=== PATIENT | male | born 1935 | race Caucasian/White ===

== ENCOUNTER 2016-08-14 23:18 | Observation (INO) | payer MEDICARE ==
--- NOTE | ~2016-08-14 | HP ---
History And Physical [id number] [place]. [address] NAME: HUMA ORTEGA : 31 STATUS : ADM Marc PAT#: [id number] AGE: 81 ADM/REG DATE : 08/14/16 MR#: [id number] REPORT SERV DATE: 08/15/16 DICTATED BY: MACARIO CARUSO JR. DATE: 08/15/16 REPORT STATUS : Draft TRANSCRIBED BY: MODIsha DATE: 08/15/16 DATE OF ADMISSION: 08/14/2016 CHIEF COMPLAINT: Near-syncope Lowe's, chest pain, weakness. HISTORY OF PRESENT ILLNESS: This 81-year-old white male, apparently had a weak spell with some chest pain, near-syncope at [facility] and was seen by a mule spinner, who arranged for an [employer] helicopter to take him from [facility] to [place] where he had a normal troponin. He also had a normal troponin on arrival here. He and his family apparently reportedly begged the ship pilot dispatcher to transport him to [facility], but apparently there is a financial agreement between [facility] and [place] now and that request was refused. Currently, he is chest pain free, but does have occasional left and right chest discomforts and history of bare-metal stenting in the distant past involving LAD and diagonal vessels with no recent MPI. He also has paroxysmal atrial fibrillation and history of ventricular tachycardia and has an ICD in place. Dr. Porter attempted to place the left ventricular lead, but was unsuccessful due to scar tissue, etc. He does not have a CAGE OPERATOR device now. He has valvular heart disease and is status post to Dr. Shane in 2001, aortic valve homograft with a soft aortic insufficiency murmur audible today. At that time, he also had a bioprosthetic mitral valve replacement and tricuspid valve annuloplasty. There is no history of CABG despite what some office records say. SOCIAL HISTORY: No tobacco, alcohol, or illicit drugs. Supportive family. FAMILY HISTORY: Noncontributory. ALLERGIES: HE HAS A HYPOTENSIVE REACTION TO NITROGLYCERIN SUBLINGUAL. HE ALSO IS INTOLERANT TO PREDNISONE. MEDICATIONS: Home medication list is reviewed. PHYSICAL EXAMINATION: VITAL SIGNS: Blood pressure 118/59, pulse is 69 and regular, respirations 18, afebrile. HEENT: No xanthelasma. NECK: No JVD at 30 degrees, no thyromegaly, no carotid bruit. LUNGS: Clear to auscultation and percussion. COR: Faint diastolic murmur at base. No third sound. ABD: Soft, nontender, no hepatosplenomegaly, no mass. EXT: Without edema or pulse deficit. MS: Back without spine or costovertebral angle tenderness. NEURO: Symmetric findings. DISCUSSION: Weak near-syncopal episodes. Chest pain with history of bare-metal stenting in History And Physical [address] [address] NAME: HUMA ORTEGA : 31 STATUS : ADM Marc PAT#: [id number] AGE: 81 ADM/REG DATE : 08/14/16 MR#: [id number] REPORT SERV DATE: 08/15/16 DICTATED BY: MACARIO CARUSO JR. DATE: 08/15/16 REPORT STATUS : Draft TRANSCRIBED BY: MODL DATE: 08/15/16 LAD and diagonal vessels in the distant past. Valvular heart disease, status post aortic valve homograft with faint diastolic decrescendo murmur audible today. Bioprosthetic mitral valve replacement and tricuspid valve annuloplasty also performed in 2001. ICD with no left ventricular lead possible. History of ventricular tachycardia, paroxysmal atrial fibrillation, chronic Coumadin anticoagulation. PLAN: MPI today along with echocardiogram and [facility] ICD interrogation. Medication list reviewed and modified temporarily. ANA/KATELYN Macario Caruso Jr., M.D. / [id number] CC: Macario Caruso Jr., M.D.
[~2016-08-14 23:18] MED LIST: ASAB PO; C1 PO; COREG3 PO; FERROUS SULF325 M1 PO; IMDUR30 PO; KLOR-CON M2020 MEQ PO; L40 PO; LEVOTHYROXIN50 MCG PO; LIPITOR20 PO; MULTIVITAMI1 PO; NITROSTAT0.4 MG SL; TRANXENE 7.5 M7.5 MG PO; ULTRAM50 PO; VITAMIN B-121000 MC1 SL; VITAMIN D1000 UNI1 PO
[2016-08-15] MEDS ORDERED: FERROUS SULF325 M1 PO (00:41)
[2016-08-15] MEDS ORDERED: MULTIVIT/MIN PO (00:42)
[2016-08-15] MEDS ORDERED: CYANO1000T PO (00:43)
[2016-08-15] MEDS ORDERED: SYN.05 PO (00:44)
[2016-08-15] MEDS ORDERED: ASAB PO (00:44)
[2016-08-15] MEDS ORDERED: VITAMIN D31000 UNIT PO (00:44)
[2016-08-15] MEDS ORDERED: POTASSIUM GLUCONATE PO (00:47)
[2016-08-15] MEDS ORDERED: L40 PO (00:50)
[2016-08-15] MEDS ORDERED: COREG3 PO (00:50)
[2016-08-15] MEDS ORDERED: IMDUR30 PO (00:51)
[2016-08-15] MEDS ORDERED: NITROSTAT0.4 MG SL (00:51)
[2016-08-15] MEDS ORDERED: C1 PO (00:55)
[2016-08-15 01:12] LABS: BASOPHILS 0.5 %; BASOPHILS ABSOLUTE 0.02 10/3/uL (0.0-0.16); EOSINOPHILS 3.1 %; EOSINOPHILS ABSOLUTE 0.12 10/3/uL (0.0-0.53); HEMATOCRIT 32.7 % (40.0-51.0); HEMOGLOBIN 11.1 g/dL (13.6-17.8); IMMATURE GRANULOCYTES 0.3 %; IMMATURE GRANULOCYTES ABSOLUTE 0.01 10/3/uL (0.0-0.11); LYMPHOCYTES 26.3 %; LYMPHOCYTES ABSOLUTE 1.02 10/3/uL (0.67-4.30); MEAN CORPUS HGB CONC 33.9 g/dL (32.0-36.0); MEAN CORPUSCULAR HEMOGLOB 33.5 pg (26.0-34.0); MEAN CORPUSCULAR VOLUME 98.8 fL (80-100); MONOCYTES 10.1 %; MONOCYTES ABSOLUTE 0.39 10/3/uL (0.21-1.20); NEUTROPHILS 59.7 %; NEUTROPHILS ABSOLUTE 2.32 10/3/uL (2.02-8.40); RBC DISTRIBUTION WIDTH 14.9 % (12.0-16.0); RED CELL COUNT 3.31 10/6/uL (4.7-6.1); WHITE BLOOD CELLS 3.9 10/3/uL (4.5-10.5)
[2016-08-15 01:14] LABS: MANUAL DIFF NO %; PLATELET COUNT 117 10/3/uL (150-400)
[2016-08-15 01:29] LABS: BUN (BLOOD UREA NITROGEN) 24 MG/DL (6-23); CALCIUM, SERUM 8.9 MG/DL (8.5-10.4); CHLORIDE, SERUM 104 MMOL/L (96-112); CHOL/HDL RATIO(NOT ORDER) 5.3 (0-5); CHOLESTEROL 169 MG/DL (< 200); CO2 (CARBON DIOXIDE) 33 MMOL/L (24-34); CREATININE 1.69 MG/DL (0.70-1.30); GFR AFRICAN AMERICAN 43 ML/MIN (>=60); GFR NON AFRICAN AMERICAN 37 ML/MIN (>=60); GLUCOSE, SERUM 93 MG/DL (60-99); HDL CHOLESTEROL 32 MG/DL (> 39); LDL CHOLESTEROL 110 MG/DL (< 130); NON-HDL CHOLESTEROL 137 MG/DL (< 160); POTASSIUM, SERUM 3.9 MMOL/L (3.5-5.3); SGPT(ALT) 22 U/L (5-65); SODIUM, SERUM 141 MMOL/L (135-148); TRIGLYCERIDE 137 MG/DL (< 150); TROPONIN I 0.04 NG/ML (<0.05)
[2016-08-15 01:36] LABS: INTERNATIONAL NORMAL RATI 2.1 UNITS (-); PARTIAL THROMBO TIME 33.1 SEC (22.5-37.2); PROTIME (NOT ORD) 23.2 SEC (12.0-14.5)
[2016-08-15 09:48] LABS: TROPONIN I 0.03 NG/ML (<0.05)
[2016-08-15 10:07] LABS: FREE T4 1.07 NG/DL (0.76-1.46); ULTRASENSITIVE TSH 2.66 MCIU/ML (0.358-3.740)
[2016-08-16 04:18] LABS: BASOPHILS 0.3 %; BASOPHILS ABSOLUTE 0.01 10/3/uL (0.0-0.16); EOSINOPHILS 2.4 %; EOSINOPHILS ABSOLUTE 0.07 10/3/uL (0.0-0.53); HEMATOCRIT 33.8 % (40.0-51.0); HEMOGLOBIN 11.4 g/dL (13.6-17.8); IMMATURE GRANULOCYTES 0.3 %; IMMATURE GRANULOCYTES ABSOLUTE 0.01 10/3/uL (0.0-0.11); LYMPHOCYTES 27.7 %; LYMPHOCYTES ABSOLUTE 0.81 10/3/uL (0.67-4.30); MANUAL DIFF NO %; MEAN CORPUS HGB CONC 33.7 g/dL (32.0-36.0); MEAN CORPUSCULAR HEMOGLOB 33.7 pg (26.0-34.0); MEAN PLATELET VOLUME 10.8 fL (9.2-13.0); MONOCYTES 8.6 %; MONOCYTES ABSOLUTE 0.25 10/3/uL (0.21-1.20); NEUTROPHILS 60.7 %; NEUTROPHILS ABSOLUTE 1.77 10/3/uL (2.02-8.40); PLATELET COUNT 110 10/3/uL (150-400); RBC DISTRIBUTION WIDTH 14.6 % (12.0-16.0); RED CELL COUNT 3.38 10/6/uL (4.7-6.1); WHITE BLOOD CELLS 2.9 10/3/uL (4.5-10.5)
[2016-08-16 04:24] LABS: INTERNATIONAL NORMAL RATI 1.7 UNITS (-)
[2016-08-16 04:25] LABS: PROTIME (NOT ORD) 19.7 SEC (12.0-14.5)
[2016-08-16 04:38] LABS: BUN (BLOOD UREA NITROGEN) 23 MG/DL (6-23); CALCIUM, SERUM 9.3 MG/DL (8.5-10.4); CHLORIDE, SERUM 107 MMOL/L (96-112); CO2 (CARBON DIOXIDE) 29 MMOL/L (24-34); CPK (IF ELEVATED MB BANDS) 35 U/L (0-200); CREATININE 1.35 MG/DL (0.70-1.30); GFR AFRICAN AMERICAN 56 ML/MIN (>=60); GFR NON AFRICAN AMERICAN 48 ML/MIN (>=60); GLUCOSE, SERUM 99 MG/DL (60-99); POTASSIUM, SERUM 4.3 MMOL/L (3.5-5.3); SODIUM, SERUM 140 MMOL/L (135-148); TROPONIN I 0.03 NG/ML (<0.05)
[2016-08-16] MEDS ORDERED: PEP20 PO (11:55)
[2016-08-16] MEDS ORDERED: IMDUR30 PO (11:59)
== END 2016-08-16 13:13 | disposition home or self-care (01) ==
LOC: 5NO 23:18
PROVIDERS: Internal Medicine Cardiovascular Disease
DX: R07.9 Chest pain, unspecified (principal); I48.0 Paroxysmal atrial fibrillation; R55 Syncope and collapse; Z79.82 Long term (current) use of aspirin; Z79.899 Other long term (current) drug therapy
CPT/HCPCS: 71010; 78452; 80048; 80061; 82550; 82962; 83735; 83880; 84439; 84443; 84460; 84484; 85025; 85610; 85730; 93005; 93017; A9270-GY; A9502; C8929; G0378; J0153; Q9957